=== PATIENT | female | born 1985 | race Caucasian/White ===

== ENCOUNTER → 2017-12-27 10:36 | Outpatient (CLI) | payer OTHER, SELFPAY ==
--- NOTE | 2017-12-27 10:39 | CT_ITS ---
STUDY: CT MAXILLOFACIAL SINUSES REASON FOR EXAM: Female, 32 years old. Chronic ethmoid sinusitis RADIATION DOSAGE (If Supplied By Facility): CTDIvol = ( 33.06 ) mGy, DLP = ( 767.73 ) mGycm TECHNIQUE: The patient was scanned in a multi detector CT scanner. High resolution axial imaging was performed without the administration of intravenous contrast material. Sagittal and coronal images were reconstructed. Individualized dose optimization techniques were used for this CT. COMPARISON: None. FINDINGS: Diffuse left ethmoid sinus disease. Diffuse left frontal sinus disease. Left maxillary sinusitis. There is widening and occlusion of the left primary ostium. Underlying left maxillary polyposis cannot be excluded. Mild mucosal thickening in the right maxillary sinus. Mild mucosal thickening in both sphenoid sinuses. Orbital soft tissues are intact. No fractures or destructive osseous lesions are visible. Visualized skull base is intact. Machine Washer spaces and parapharyngeal spaces are intact. Visualized parotid glands, nasopharynx, oral cavity, and oropharynx are intact. CT/Sinus/Facial Bone IMPRESSION: Diffuse left ethmoid and frontal sinus disease. Diffuse left maxillary sinus disease with associated widening of the primary ostium. Associated underlying polyposis cannot be excluded. Electronically Signed: Michael Manning MD at 23:47 EDT Tel , Service support ,
== END ==
PROVIDERS: Visit Provider Otolaryngology
DX: J32.2 Chronic ethmoidal sinusitis (principal)
CPT/HCPCS: 70486

== ENCOUNTER 2017-12-30 06:40 | Day surgery (SDC) | payer OTHER, SELFPAY ==
[2017-12-30] VITALS (8 sets, daily range): BP systolic 117–140; BP diastolic 69–90; PULSE 65–101; RESP 16–18; TEMP 36.1–36.5; O2SAT 95–97; BMI 39.6
[2017-12-30 07:12] LABS: Internal QC Validated? YES +Cl - CLEAR BKGD; Pregnancy, Urine Negative Negative
--- NOTE | 2017-12-30 08:35 | ETH_PTH ---
PATIENT: WILDER CORONADO LOC: [facility] [place] U#:[id number] AGE/SX: 32/F ROOM: RE12/30/[address]: Dr. Jose Mcdaniels MD : 1985 BED: DIS: 12/30/2017 SPEC #: [id number] RECD: 12/30/17 10:52 STATUS: CALIXTO ORLIN #: [id number] KIRILL: 12/30/17 08:[address]: Jose Mcdaniels DEPT: SURGICAL PATHOLOGY RECD BY: Fritz Garcia ENTERED: 12/30/17 12:07 SP TYPE: ETH TISS OTHR DR: No Primary Care Phys Tissues: A - Ethmoid sinus, NOS B - Ethmoid sinus, NOS C - NASAL POLYP D - Nasal septum, NOS Procedures: Decalcification bone/plaque Surgery Specimen Level III Surgery Specimen Level IV HEADER OPERATION: Septoplasty, endoscopy, bilateral nasal w/maxillary antrostomy PRE-OP DIAGNOSIS: Deviated nasal septum, nasal polyp, chronic ethmoidal sinusitis TISSUE SUBMITTED: A. Left contents of maxillary and ethmoid sinus, B. Right contents of maxillary and ethmoid sinus, C. Nasal polyp, D. nasal septum and cartilage MICROSCOPIC DIAGNOSIS A. Left maxillary and ethmoid sinus contents: Fragments of respiratory mucosa with moderate chronic inflammation and bone. B. Right maxillary and ethmoid sinus contents: Fragments of respiratory mucosa with chronic inflammation and bone. C. Nasal polyp, biopsy: Pieces of benign inflamed mucosal polyp with focal squamous metaplasia. D. Nasal septum and cartilage: Fragments of cartilage and bone, clinically deviated nasal septum. SJ:brayden 01/03/18 MICROSCOPIC DESCRIPTION Slides are reviewed. GROSS DESCRIPTION A - Received in fixative is one container labeled with the patient's name and designated left contents of maxillary sinus and ethmoid sinus. The specimen consists of multiple fragments of hemorrhagic soft tissue mixed with fragments of bone that in aggregate measure 3 x 2.5 x 0.3 cm. The entire specimen is submitted in one cassette after decalcification. B - Received in fixative is one container labeled with the patient's name and designated right contents of maxillary sinus and ethmoid sinus. The specimen consists of multiple fragments of hemorrhagic soft tissue mixed with fragments of bone that in aggregate measure 3 x 2.5 x 0.3 cm. The entire specimen is submitted in one cassette after decalcification. C - Received in fixative is one container labeled with the patient's name and designated nasal polyp. The specimen consists of a marlow-pink polyp measuring 1.2 x 0.5 x 0.4 cm and 2.5 x 1.5 x 0.5 cm. Both polyps are bisected. The entire specimen is submitted in two cassettes. D - Received in fixative is one container labeled with the patient's name and designated nasal septum and cartilage. The specimen consists of multiple fragments of cartilage and bone that in aggregate measure 3 x 3 x 0.3 cm. Box Fabricator tissue is submitted in one cassette after decalcification. / VICTORINA:brayden 12/30/17 TC:3 CPT: 34300 x3, 35438, 03559 x3
[2017-12-30] MEDS: Oxymetazoline 0.05% 1 SPRAY SPRAY.BTL 15 SPRAY (08:55)
[2017-12-30] MEDS: Lidocaine 4% 50 ML Bottle (08:55)
--- NOTE | 2017-12-30 10:11 | PCM.DC ---
You will use the following diet at home:: Regular Discharge Activity: Return to Normal Activity, May not drive while taking narcotic pain medications. Call your doctor if your incision/area has: Sudden Increased Bleeding, Swelling at the incision site Call your doctor if you observe: Fever of 101 or Higher, Uncontrolled pain Allergies/Adverse Reactions: Allergies morphine Allergy (Verified 07/12/14 10:36) Itching also nausea Medications to take at Discharge NK [NK] 12/29/17 Primary Care Physician: Care Physician,No Primary [Primary Care Provider] - Please Follow Up With: Jose Mcdaniels MD When: 5 days
--- NOTE | 2017-12-30 10:13 | PCM.OPRPT ---
Problem List (1) Deviated nasal septum Status: Chronic (2) Chronic sinusitis of both maxillary sinuses Status: Chronic (3) Chronic ethmoidal sinusitis Status: Chronic Report of Operation Date of Procedure: 12/30/17 Pre-Operative Diagnosis: Left nasal polyp, chronic maxillary and ethmoid sinusitis, deviated nasal septum Post-Operative Diagnosis: same Surgery/Procedure Performed:: Septoplasty, bilateral total endoscopic ethmoidectomy, right maxillary antrostomy, left maxillary antrostomy with tissue removal Description of Surgical Findings:: Mildred is a 32-year-old female presents for evaluation of left chronic nasal site obstruction with a polypoid mass filling the nasal cavity. Examination showed an extensive polypoid mass completely obstructing the left nasal cavity as well as septal deviation and purulent discharge from the sinuses bilaterally. CT scan confirmed bilateral chronic sinusitis with complete opacification and a polypoid mass predominantly on the right side and the patient was counseled regarding surgical treatment and was eager to proceed. The risks, alternatives, potential benefits, and complications were discussed at length and any questions answered to the patient and/or caregiver's satisfaction. Witnessed informed consent was obtained in the office, and the patient and/or caregiver was agreeable to proceed. Procedure went as follows: The patient was identified in the preoperative holding and brought to the operating room, was placed under general anesthesia and intubated. When appropriate anesthesia was obtained, the navigational head gear was placed and confirmed to be operational in accordance with the full stack engineer's directions. Pledgets soaked in a 50-50 mixture of oxymetazoline and 4% topical lidocaine were placed to decongest the nasal mucosa. These were then removed and beginning on the left side using a 0? endoscope the nasal cavity examined. The insertion of the middle turbinate and uncinate process was then injected with 1% lidocaine with 100,000 epinephrine for a 2 cc total, and a similar injection was then carried on the contralateral side. Upon returning to the left side the middle turbinate was medialized with a Wagoner elevator. There was a large polyp extending through a secondary ostium of the medial maxillary sinus wall. This was grasped at its base and evulsed. This allowed examination of the maxillary sinus ostia which is then probed with a double ball seeker. The uncinate process process was then outfractured with a J curette and transected with a backbiting forceps. This was then removed with the microdebrider creating a wide maxillary antrostomy. The ethmoid bulla was then entered and total ethmoidectomy was then carried out working posteriorly to anterior. Any polyps, scar, and mucous secretions were removed. Copious purulent material was irrigated from the frontal sinus and anterior ethmoidal cells. Pledgets soaked in oxymetazoline were then placed for hemostasis and attention turned to the contralateral side. Similar procedure and findings were then carried out, but without significant polypoid disease noted despite purulent secretions. Floseal hemostatic agent was then applied. The patient was identified in the preoperative holding and brought to the operating room, was placed under general anesthesia and intubated. When appropriate anesthesia was obtained, pledgets soaked in a 50-50 mixture of oxymetazoline and 4% topical lidocaine were placed to decongest the nasal mucosa. The nasal septum was then injected beginning on the left side with 1% lidocaine with 100,000 epinephrine for a total of 8 cc. The pledgets were then removed and the left nasal cavity examined. There was noted to be significant nasal septal deviation to the left posteriorly. Using a 15 blade scalpel, a hemitransfixion incision was then made in the left side and using the Joan elevator a subperichondrial/periosteal flap was elevated. The septum was then transected at the bony cartilaginous junction and similar flap raised on the contralateral side. Using a Leandro-Liberty forceps the septum was then sharply transected superiorly and the deviated portions removed with a Robert forceps. Any inferior bony spur was then removed with a chisel allowing for midline placement of the nasal septum. The hemitransfixion incision was then closed with interrupted 4-0 chromic gut suture followed by a 4-0 plain quilting suture to reapproximate the mucosal flaps. Forte splints coated with Bacitracin ointment were then applied to each nasal cavity and secured at the columella with a single 3-0 Prolene suture. An NG tube was then placed to decompress the stomach and the patient returned to anesthesia, revived and extubated having tolerated the procedure well. Type of Anesthesia:: General Anesthesiologist: Jose Boykin Special Medications: none Specimen's removed: septum and sinus contents Drains: none Estimated Blood Loss (mL): 200 mL Fluids Replaced: 1100 mL Grafts/Implants Used: Forte splints - Complications none - Admit VTE Documentation VTE Present on Admission: No VTE Mechan Device Prophylaxis: SCD's VTE Pharm Prophylaxis ordered?: No
== END 2017-12-30 13:18 | disposition home or self-care (01) ==
LOC: SDC 06:42 → AC 06:44
PROVIDERS: Visit Provider Otolaryngology
PROC: (CPT 31255; principal; 2017-12-30 08:05)
DX: J34.2 Deviated nasal septum (principal); J32.2 Chronic ethmoidal sinusitis; J33.9 Nasal polyp, unspecified; K21.9 Gastro-esophageal reflux disease without esophagitis; Z87.891 Personal history of nicotine dependence
CPT/HCPCS: 00160; 31255; 31267; 81025; 88304; 88305; 88311; J7120; J2405

== ENCOUNTER 2021-07-07 05:05 | Inpatient (IN) | payer OTHER, SELFPAY ==
--- NOTE | 2021-07-06 13:25 | PCM.HP.BLA ---
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 ? TRUCK DRIVER RUBBISH COLLECTOR Expand AllCollapse All Expand All by Default Pre-Op History and Physical ? HPI: The patient is a 36 year old female presenting for pre-operative visit. She is scheduled for and bilateral salpingectomy, for repeat elective cs and desires sterilization on 07/07/21. Procedure discussed along with risks, benefits and complications. Other alternatives discussed for management. Consent form signed? Yes. ? ? PAST MEDICAL HISTORY PAST MEDICAL HISTORY Diagnosis Date ? Anemia ? ? Anxiety ? ? anxiety ? ? Diabetes mellitus type 2, uncontrolled, without complications 12/12/2018 ? Diabetes, gestational ? ? Hyperlipidemia, acquired ? ? Hypothyroidism, acquired 12/12/2018 ? depression ? ? ? PAST SURGICAL HISTORY PAST SURGICAL HISTORY Procedure Laterality Date ? PAST SURGICAL HISTORY OF ? ? ? nasal polypectomy and part of nasal bone removed ? ? ? CURRENT MEDICATIONS Current Outpatient Medications Medication Sig Dispense Refill ? insulin NPH (HumuLIN N,NovoLIN N) pen Take 14 units with breakfast and 46 units at bedtime (SQ injection) as directed ? ? ? Insulin Warren, Disposable, (LITE TOUCH INSULIN PEN NEEDLES) 29 gauge x 1/2 Use as directed. 50 Each 2 ? insulin regular human, CONCENTRATED 500 UNIT/ML, (HUMULIN R) 500 unit/mL (3 mL) inpn Take 20 units with breakfast, 20 units with lunch, and 15 units with dinner as directed 3 mL 3 ? levothyroxine (SYNTHROID) 150 mcg tablet Take 1 tablet by mouth once daily. Take on empty stomach. For thyroid 30 tablet 11 ? Oadusoww-Xk-Kuh-Fe-FA ( VITAMIN) tab Take 1 tablet by mouth. ? ? ? Blood Pressure Test Kit-Large (QUICK RESPONSE BP MONITOR) 1 Each twice daily. Use as directed 1 Each 0 ? aspirin, enteric coated (ECOTRIN LOW STRENGTH) 81 mg EC tablet Take 1 tablet by mouth once daily. if no GI upset for stroke risk reduction. (Patient not taking: Reported on 06/30/2021 ) 90 tablet 3 ? blood sugar diagnostic (BLOOD GLUCOSE TEST) test strip Test blood sugar(s) 1-2 times daily. Dx: Type 1 DM - Uncontrolled E 10.65 Insulin: No 50 Strip 11 ? No current facility-administered medications for this visit. ? ? ALLERGIES: Codeine and Morphine ? PERSONAL HISTORY: SOCIAL HISTORY Social History ? Tobacco Use ? Smoking status: Former Smoker ? ? Packs/day: 1.00 ? ? Years: 10.00 ? ? Pack years: 10.00 ? ? Types: Cigarettes ? ? Quit date: 03/16/2010 ? ? Years since quittin.2 ? Smokeless tobacco: Never Used ? Tobacco comment: quit JUL 2009 Vaping Use ? Vaping Use: Never used Substance Use Topics ? Alcohol use: Not Currently ? ? Alcohol/week: 8.5 standard drinks ? ? Types: 3 Cans of Beer (12oz), 1 Standard drinks or equivalent per week ? Drug use: No ? FAMILY HISTORY: FAMILY HISTORY FAMILY HISTORY Problem Relation Age of Onset ? Heart Attack Mother ? ? Diabetes Mother ? ? Heart Attack Father ? ? Diabetes Father ? ? Hypertension Father ? ? No Known Problems Sister ? ? No Known Problems Sister ? ? No Known Problems Paternal Grandmother ? ? Heart Attack Paternal Grandfather ? ? No Known Problems Daughter ? ? ADD/ADHD Son ? ? No Known Problems Son ? ? ? REVIEW OF SYMPTOMS: negative except as noted above PHYSICAL EXAMINATION: ? VITALS: Blood pressure 126/70, weight 293 lb (132.9 kg), last menstrual period 10/08/2020. ? GENERAL: The patient is well nourished, well hydrated in no acute distress. , The patient is oriented to time, place, and person. NECK: full range of motion ABD: soft, gravid, non tender ? IMPRESSION: @ 37.6 weeks today- EDC 07/15/21 with Preexisting Type 2 DM on insulin, AMA, Hypothyroidism ? PLAN: Repeat elective CS and Bilateral salpingectomy ? Pt has been counseled on risks/benefits and alternatives of surgery including but not limited to anesthesia, bleeding, infection, injury to pelvic structures including bowel, bladder, ureters and vessels. Pt wishes to proceed with surgery at this time. We reviewed salpingectomy is permanent. Pt wishes to proceed. ? VERONA BEACHS protocol reviewed COVID testing ordered ? ? I have reviewed and updated past medical and surgical history, medications and allergies Carmella Bess MD
[2021-07-07] VITALS (19 sets, daily range): BP systolic 114–143; BP diastolic 64–84; PULSE 62–91; RESP 16–18; TEMP 36.1–36.7; O2SAT 95–100; BMI 43.0
[2021-07-07] MEDS: Lactated Ringers 1,000 ML 999 ML IV (05:30)
[2021-07-07] MEDS: Acetaminophen 500 MG Tablet 1000 MG PO ×3 (05:55→17:44)
[2021-07-07 05:56] LABS: Bedside Glucose 101 mg/dL (70-110)
[2021-07-07 06:31] LABS: Absolute Lymphocyte Count 3.25 X10^3/uL (0.83-4.51); Absolute Neutrophil Count 6.4 X10^3/uL (2.0-7.7); Basophil# 0.06 X10^3/uL; Basophil% 0.6 % (0-1); Eosinophil# 0.12 X10^3/uL; Eosinophils% 1.1 % (0-5); Hematocrit 36.3 % (37-47); Hemoglobin 11.8 g/dL (12.0-15.0); Lymphocyte # 3.25 X10^3/ul (0.83-4.51); Lymphocyte % 30.2 % (19-41); Mean Corp Hgb Conc 32.5 g/dL (32-36); Mean Corpuscular Hgb 30.3 pg (27.0-32.0); Mean Corpuscular Volume 93.3 fL (81-99); Mean Platelet Vol. 11.4 fl (6.2-12.0); Monocyte% 8.4 % (0-10); NRBC Flagged by Analyzer 0 % (0-5); Neutrophil # 6.38 X10^3/uL (2.7-7.7); Neutrophil % 59.3 % (47-70); Platelet Count 215 K/mm3 (150-450); RBC Distribution Width CV 13.3 % (11.6-14.6); RBC Distribution Width SD 45.1 fl (35.1-43.9); Red Blood Count 3.89 M/mm3 (4.2-5.4); White Blood Count 10.8 K/mm3 (4.4-11.0)
[2021-07-07] MEDS: Lactated Ringers 1,000 ML 150 ML IV (06:31)
[2021-07-07] MEDS: Sodium Citrate/Citric Acid 30 ML UDC PO (07:11)
--- NOTE | 2021-07-07 08:02 | FALS_PTH ---
PATIENT: WILDER CORONADO LOC: [facility] U#:[id number] AGE/SX: 36/F ROOM: WP007 RE07/07/[address]: Dr. Carmella Mendoza, MDDOB: 1985 BED: 1 DIS: 07/09/2021 SPEC #: [id number] RECD: 07/07/21 09:06 STATUS: CALIXTO ORLIN #: [id number] KIRILL: 07/07/21 08:[address]: Carmella Mendoza DEPT: SURGICAL PATHOLOGY RECD BY: Sandie Kwon ENTERED: 07/07/21 12:05 SP TYPE: FALL TUBES OT DR: No Primary Care Phys Tissues: A - Fallopian tube B - Placenta, NOS Procedures: Surgery Specimen Level II Surgery Specimen Level V HEADER OPERATION: Repeat section, tubal ligation PRE-OP DIAGNOSIS: Two-vessel cord, diabetic TISSUE SUBMITTED: A ? Bilateral fallopian tubes, B - Placenta MICROSCOPIC DIAGNOSIS A. Bilateral fallopian tubes, bilateral salpingectomies: Right fallopian tube ? complete segment of fallopian tube. Benign paratubal cyst. Left fallopian tube ? complete segment of fallopian tube. Benign paratubal cyst. B. Gerber placenta (292 gm): Umbilical cord ? bivascular with no evidence of inflammation. Placental membranes ? no pathologic change. Placental disc ? mild Taina-Chau change, intervillous congestion and focal nonspecific chronic villitis. AM:brayden 07/09/2021 MICROSCOPIC DESCRIPTION Slides are reviewed. GROSS DESCRIPTION A - Received in fixative is one container labeled with the patient's name and designated bilateral fallopian tubes, suture in right tube. The specimen consists of two fallopian tubes with an average length of 9 cm and has an average diameter of 0.6 cm. Both fallopian tubes have normal fimbriated ends. No mass lesions are identified. The soft tissue adjacent to the right fallopian tube contains a small cyst containing clear fluid. The cyst measures 0.8 cm in greatest dimension. Usps Letter Carrier sections are submitted in two cassettes as follows: 1 - right fallopian tube, 2 - left fallopian tube. B - SPECIMEN: PLACENTA / CLINICAL INFORMATION: A. Weight: 2.3 kg B. Gestational Age: 38 weeks C. Sex: Female PLACENTAL WEIGHT (POST FIXATION): 292 gm PLACENTAL DIMENSIONS: 17 x 15 x 3 cm PLACENTAL SHAPE: Usual ovoid PLACENTAL WEIGHT FOR GESTATIONAL AGE: Under 10th percentile MEMBRANES - Present A. Insertion: Marginal B. Site of rupture from edge: 3 cm from edge of placental disc C. Color of membrane: Stafford-patel D. Abnormalities: None UMBILICAL CORD - Present A. Color: Stafford-patel B. Insertion: Eccentric C. Length: 36 cm D. Diameter: 1 cm E. Number of vessels: Two F. Abnormalities: None PLACENTAL DISC - Present A. Color of surface: Stafford-patel B. surface abnormalities: None C. Maternal cotyledons: Intact with minimal tears D. Attached retro placental clot: No clot E. Cut surface: Dark red and spongy F. Lesions: None G. Separate clot: Absent SECTIONS SUBMITTED: 1. Umbilical cord ( end notched) 2. Umbilical cord, placental end 3. Membrane roll 4. Placental disc, and maternal surfaces 5. Placental disc, and maternal surfaces 6. Placental disc, and maternal surfaces AM:brayden 07/08/21 TC:3 CPT: 36951, 19626 x2
--- NOTE | 2021-07-07 08:35 | OP.PCM_ITS ---
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 sHe was placed in the supine position. She was then prepped and draped in normal sterile fashion. Once spinal anesthesia was found to be adequate skin incision was made with a scalpel in a Pfannenstiel fashion. It was carried down to the underlying layer of the fascia. Fascia was then incised midline with scapel and extended laterally using curved mccallum. 2 straight Bush's were placed in the superior aspect of the fascial edge and the rectus muscles were dissected off sharply. Attention was then turned to the inferior aspect where again the fascial edge was grasped with 2 straight Sherry clamps tented up and the rectus muscle dissected off sharply. At this time the rectus muscles were grasped in the midline using 2 Allis clamps and scalpel was used to separate the rectus muscles. Using blunt force the peritoneum was then entered. Metzenbaums were used to take down the rectus muscles inferiorly as well as the peritoneum. At this time the vesicouterine peritoneum was identified. Uterine incision was made in a low transverse fashion with the scalpel and then entered bluntly. Gentle opposing traction was placed to extend the uterine incision. The membranes were ruptured amniotic fluid clear. Infant's head was then brought to the uterine incision was delivered atraumatically followed by the rest infant's body. At this time delayed cord clamping was performed mouth nose were suctioned. Infant was then handed to the waiting nursery team. The placenta was then removed with gentle traction. The uterus was removed from the intra- abdominal cavity is wrapped in a moist lap. He was cleared of all clots and debris using a moist lap. Ring clamps were placed on the uterine angles. #1 Vicryl suture was used in a running locked fashion for the first layer. Followed by second imbricating layer with #1 Vicryl. Tubes and ovaries were evaluated they were normal. The tubes were grasped in an avascular area with the [place] the tube was sealed and cut along mesosalpinx to remove tube completely. Uterus placed back in intraabdominal cavity- the procedure was completed on the other other side. Josué placed over pedicles and uterine incision. Great hemostasis was appreciated at this time the uterine incision was again evaluated good hemostasis was appreciated. The peritoneum was grasped with Kellys. Peritoneum and muscle were reapproximated using #2 Vicryl suture in a running fashion. Josué placed over muscle. The fascia was then reapproximated using #1 PDS in a running fashion. Subcutaneous layer was evaluated and Bovie was used for any small oozing that was noted per #2-0 plain gut suture was then used to reapproximate the subcutaneous layer 4-0 monocryl was used to reapproximate the skin in a subcutaneous fashion. Dry sterile dressing was applied. Instrument lap needle count were correct ?2. Anticipated normal postoperative course for this patient. Presentation: Positive for Vertex Amniotic Membrane Rupture Type: Artificial Amniotic Fluid Description: Clear Placental Delivery Description: Expressed Placenta Disposition: [facility] Cord Vessel Description: 3 Vessels Cord Entanglement: Around neck x 2, loose Nuchal Cord Compression: Without compression A Gender: Female (1 minute): 9 (5 minute): 9 Delayed Cord Clamping: Yes Complications Risks of Surgery Discussed w/Patient: Bleeding, Anesthesia Risks, Infection, Permanency, Injury to surrounding structure(s) including bowel and bladder and Availability of other non-permanent control options Admit VTE Documentation VTE Present on Admission: Yes VTE Mechan Device Prophylaxis: SCD's VTE Pharm Prophylaxis Ordered: Yes
[2021-07-07] MEDS: Oxytocin 30 units/NS 500 ml 30 UNITS/500 ML IV.SOLN 167 UNITS IV (08:55)
[2021-07-07 09:10] LABS: Pathology Specimen OB SEE PATHOLOGY REPORT
[2021-07-07] MEDS: Ketorolac 30 MG/ML Syringe IV ×3 (09:12→21:09)
[2021-07-07] MEDS: 0.9% Saline Lock 10 ML Syringe IV ×2 (09:12→21:09)
[2021-07-07 09:20] LABS: Bedside Glucose 105 mg/dL (70-110)
--- NOTE | 2021-07-07 10:02 | NURSING ---
ligasure was used, machine #1. Ligasure device lot #[id number]. expiration 04/08/2026
[2021-07-07] MEDS: Lactated Ringers 1,000 ML 100 ML IV (12:52)
[2021-07-07] MEDS: Insulin U-500 UNITS/ML PEN 10 UNITS SC (12:54)
[2021-07-07] MEDS: Senna/Docusate Sodium 1 Tablet PO (13:00)
[2021-07-07 17:16] LABS: Bedside Glucose 65 mg/dL (70-110)
--- NOTE | 2021-07-07 18:16 | NURSING ---
Called Dr. Bess to update on patient's blood sugar and insulin. Informed her that her BGT was 105 during her recovery, that she received her insulin at lunch time and that her BGT was 68 prior to her dinner and that she was feeling very tired. Dr. Bess ordered to hold the regular insulin for dinner but to still give the NPH tonight.
--- NOTE | 2021-07-07 19:23 | NURSING ---
Pulse ox placed on patient's right hand, ring finger while patient is in SCN visiting baby. Spo2 98% and patient denies SOB, pain, or difficulty breathing.
[2021-07-07] MEDS: Enoxaparin 40 MG/0.4 ML Syringe SC (21:09)
[2021-07-07] MEDS: Insulin NPH Human 100 UNITS/ML PEN 23 UNITS SC (21:19)
[2021-07-07 21:31] LABS: Bedside Glucose 159 mg/dL (70-110)
[2021-07-08] VITALS (10 sets, daily range): BP systolic 126–156; BP diastolic 54–79; PULSE 65–83; RESP 16–18; TEMP 36.3–36.8; O2SAT 64–99
[2021-07-08] MEDS: Acetaminophen 500 MG Tablet 1000 MG PO ×5 (00:08→23:59)
[2021-07-08] MEDS: 0.9% Saline Lock 10 ML Syringe IV (03:43)
[2021-07-08] MEDS: Ketorolac 30 MG/ML Syringe IV (03:43)
[2021-07-08 06:01] LABS: Hematocrit 32.1 % (37-47); Hemoglobin 10.4 g/dL (12.0-15.0); Mean Corp Hgb Conc 32.4 g/dL (32-36); Mean Corpuscular Hgb 30.5 pg (27.0-32.0); Mean Corpuscular Volume 94.1 fL (81-99); Mean Platelet Vol. 10.8 fl (6.2-12.0); Platelet Count 159 K/mm3 (150-450); RBC Distribution Width CV 13.5 % (11.6-14.6); Red Blood Count 3.41 M/mm3 (4.2-5.4); White Blood Count 10.3 K/mm3 (4.4-11.0)
[2021-07-08] MEDS: Levothyroxine 150 MCG Tablet PO (07:00)
--- NOTE | 2021-07-08 08:45 | PN.OBGYN_ITS ---
Subjective Subjective Pain well controlled. Average lochia. Ambulating without difficulty. Able to urinate without difficulty and tolerating regular diet. Objective Data Objective Data Vital Signs: Vital Signs Temp Pulse Resp BP Pulse Ox 97.4 F L 72 18 136/71 H 97 07/08/21 05:42 07/08/21 05:42 07/08/21 08:00 07/08/21 03:42 07/08/21 08:00 Oxygen Delivery Method Room Air Weight: 132.086 kg Body Mass Index (BMI) 43.0 Intake & Output: Intake and Output for Last 24 Hours 07/06/21 07/07/21 07/08/21 23:59 23:59 23:59 Intake Total 2525.83 / 2525.83 Output Total 550 / 550 Balance 1974.83 / 1974.83 Lab / Micro Data Result Diagrams: 07/08/21 05:50 Labs: Laboratory Results - last 24 hr 07/07/21 09:12: POC Glucose 105 07/07/21 10:10: Screen NEGATIVE, Baby's Blood Type A POSITIVE, Baby's NATO NEGATIVE 07/07/21 17:03: POC Glucose 65 L 07/07/21 21:16: POC Glucose 159 H 07/08/21 05:50: WBC 10.3, RBC 3.41 L, Hgb 10.4 L, Hct 32.1 L, MCV 94.1, MCH 30. 5, MCHC 32.4, RDW Std Deviation 46.0 H, RDW Coeff of Aramis 13.5, Plt Count 159, MPV 10.8 Micro: Microbiology 07/07/21 06:10 Nasal Secretion SARS-CoV-2 Antigen (Rapid) - Final Physical Exam Const alert General Appearance: cooperative GI GI Narrative: soft, moderate distention, fundus firm, appropriately tender. Abdominal bandage clean dry and intact Assessment & Plan (1) delivery delivered: PLAN: Postoperative day #1 status post repeat section. Patient is doing well. Routine care today. is in special care nursery and doing well. Patient is working on breast-feeding. Postop mild blood loss anemia is appropriate for blood loss during surgery.
[2021-07-08] MEDS: Insulin NPH Human 100 UNITS/ML PEN 7 UNITS SC (09:17)
[2021-07-08] MEDS: Insulin U-500 UNITS/ML PEN 10 UNITS SC ×2 (09:20→12:55)
[2021-07-08] MEDS: Ibuprofen 600 MG Tablet PO ×3 (09:21→20:57)
[2021-07-08] MEDS: Senna/Docusate Sodium 1 Tablet PO (09:21)
[2021-07-08] MEDS: Enoxaparin 40 MG/0.4 ML Syringe SC ×2 (09:21→22:10)
[2021-07-08 09:30] LABS: Bedside Glucose 72 mg/dL (70-110)
[2021-07-08 13:01] LABS: Bedside Glucose 95 mg/dL (70-110)
[2021-07-08] MEDS: Insulin U-500 UNITS/ML PEN 7 UNITS SC (17:13)
[2021-07-08 17:20] LABS: Bedside Glucose 98 mg/dL (70-110)
[2021-07-08] MEDS: Insulin NPH Human 100 UNITS/ML PEN 23 UNITS SC (22:11)
[2021-07-08 22:21] LABS: Bedside Glucose 127 mg/dL (70-110)
[2021-07-09 04:10] VITALS: BP 114/65; PULSE 71; RESP 18
[2021-07-09] MEDS: Ibuprofen 600 MG Tablet PO ×2 (04:12→09:41)
[2021-07-09] MEDS: Acetaminophen 500 MG Tablet 1000 MG PO ×2 (06:23→12:32)
[2021-07-09] MEDS: Levothyroxine 150 MCG Tablet PO (06:23)
[2021-07-09] MEDS: Insulin NPH Human 100 UNITS/ML PEN 7 UNITS SC (08:11)
[2021-07-09 08:20] VITALS: BP 143/85; PULSE 75; RESP 16; TEMP 36.4
[2021-07-09 08:21] LABS: Bedside Glucose 78 mg/dL (70-110)
[2021-07-09] MEDS: Insulin U-500 UNITS/ML PEN 10 UNITS SC ×2 (08:53→13:13)
--- NOTE | 2021-07-09 09:06 | PCM.PN.OB ---
Subjective Subjective Pain well controlled. Average lochia. No nausea or vomiting. Passing flatus, no bowel movement yet. Ambulating without difficulty. Objective Data Objective Data Vital Signs: Vital Signs Temp Pulse Resp BP Pulse Ox 97.6 F L 75 16 143/85 H 98 07/09/21 08:20 07/09/21 08:20 07/09/21 08:20 07/09/21 08:20 07/08/21 19:44 Oxygen Delivery Method Room Air Weight: 132.086 kg Body Mass Index (BMI) 43.0 Intake & Output: Intake and Output for Last 24 Hours 07/07/21 07/08/21 07/09/21 23:59 23:59 23:59 Intake Total 2525.83 / 2525.83 Output Total 550 / 550 Balance 1974.83 / 1974. Lab / Micro Data Result Diagrams: 07/08/21 05:50 Labs: Laboratory Results - last 24 hr 07/08/21 09:16: POC Glucose 72 07/08/21 12:54: POC Glucose 95 07/08/21 17:12: POC Glucose 98 07/08/21 22:10: POC Glucose 127 H 07/09/21 08:10: POC Glucose 78 Micro: Microbiology 07/07/21 06:10 Nasal Secretion SARS-CoV-2 Antigen (Rapid) - Final Physical Exam Const alert General Appearance: cooperative GI GI Narrative: soft, moderate distention, remainder of abdominal exam deferred as was breast-feeding. Per nursing bandages clean dry and intact. Fundus is appropriately firm. Assessment & Plan (1) delivery delivered: PLAN: Postoperative day #2 status post repeat section. Blood sugars are stable. Blood pressures were elevated last night. Has a mild headache of 2 out of 10 today. Will monitor blood pressures and headache for now. is still in special care nursery for hypoglycemia. Working on breast-feeding. Patient will likely be discharged tomorrow. Patient states understanding and agreement with plan.
[2021-07-09] MEDS: Senna/Docusate Sodium 1 Tablet PO (09:42)
[2021-07-09] MEDS: Enoxaparin 40 MG/0.4 ML Syringe SC (09:42)
--- NOTE | 2021-07-09 12:49 | PCM.DC ---
Discharge Instructions Diet Discharge Diet: No restrictions Activity May resume sexual activity in: 6-8 weeks Lifting Restrictions: 25 Dressing / Incision Call your doctor if your incision/area has: Continuous Slow Oozing, Sudden Increased Bleeding, Increased Pain/ Swelling, Increased Redness, Foul Smelling Discharge and Swelling at the incision site Call your doctor if you observe: Fever of 101 or Higher, Inability to urinate, Using more than 1 pad per hour and Uncontrolled pain Additional Dressing/Incision Instructions:: remove dressing at 7 days post op- if it becomes saturated prior to that time you may remove it. Let soap and water run over incision sites and dab dry. keep incision clean and dry. Follow Up Care Please Follow Up With: Carmella Mendoza MD When: 1-2 weeks post of incision check and again at 6 weeks post . [phone] Test Results: Test results from this visit will be discussed in further detail at your follow-up appointment, if applicable. Discharge Plan Admission Admit Date/Time: 07/07/21 05:05 Attending Provider: Carmella Mendoza Primary Care Provider: Care Physician,No Primary Discharge Orders/Prescriptions Prescriptions: New acetaminophen 500 mg Tablet 1,000 mg PO Q6 Qty: 0 RF: 0 Humulin N NPH Insulin KwikPen 100 unit/mL (3 mL) Insulin Pen 7 unit subcut BREAKFAST Qty: 0 RF: 0 Humulin N NPH Insulin KwikPen 100 unit/mL (3 mL) Insulin Pen 23 unit subcut QHS Qty: 0 RF: 0 sennosides-docusate sodium [Stool Softener-Stimulant Laxat] 8.6-50 mg Tablet 1 - 2 tab PO DAILY Qty: 0 RF: 0 ibuprofen 600 mg Tablet 600 mg PO Q6H Qty: 0 RF: 0 simethicone [Mi-Acid Gas Relief(simethicon)] 80 mg Tablet,Chewable 80 mg PO PCHS PRN (Reason: Indigestion/stomach pain) Qty: 0 RF: 0 Continued levothyroxine 150 mcg Tablet 150 mcg PO DAILY RF: 0 Humulin N NPH Insulin KwikPen 100 unit/mL (3 mL) Insulin Pen 14 unit SUBCUT BREAKFAST RF: 0 Humulin N NPH Insulin KwikPen 100 unit/mL (3 mL) Insulin Pen 46 unit SUBCUT QHS RF: 0 Humulin R U-500 (Conc) Kwikpen 500 unit/mL (3 mL) Insulin Pen 20 unit SUBCUT BREAKFAST RF: 0 Humulin R U-500 (Conc) Kwikpen 500 unit/mL (3 mL) Insulin Pen 20 unit SUBCUT LUNCH RF: 0 Humulin R U-500 (Conc) Kwikpen 500 unit/mL (3 mL) Insulin Pen 15 unit SUBCUT DINNER RF: 0 No Action aspirin 81 mg Capsule 81 mg PO DAILY RF: 0 Referrals / Follow Up: Care Physician,No Primary [Primary Care Provider] -
--- NOTE | 2021-07-09 12:54 | DS.PCM_ITS ---
Discharge Summary Date of Admission: 07/07/21 Date of Discharge: 07/09/21 Summary: Patient was admitted to [facility] on 06/29/2001 underwent a repeat low transverse section with a bilateral salpingectomy at 38.6 weeks gestation. Patient an uncomplicated postoperative course was discharged home on postoperative day #2 in stable condition. Patient will and will follow up with primary care physician for adjustment follow up in the office for routine care and further adjustment of insulin. Meaningful Use Info Meaningful Use Diagnoses (Choose all that apply): None applicable Discharge Plan Admission Admit Date/Time: 07/07/21 05:05 Attending Provider: Carmella Mendoza Primary Care Provider: Care Physician,Susy Primary Discharge Orders/Prescriptions Prescriptions: New acetaminophen 500 mg Tablet 1,000 mg PO Q6 Qty: 0 RF: 0 Humulin N NPH Insulin KwikPen 100 unit/mL (3 mL) Insulin Pen 7 unit subcut BREAKFAST Qty: 0 RF: 0 Humulin N NPH Insulin KwikPen 100 unit/mL (3 mL) Insulin Pen 23 unit subcut QHS Qty: 0 RF: 0 sennosides-docusate sodium [Stool Softener-Stimulant Laxat] 8.6-50 mg Tablet 1 - 2 tab PO DAILY Qty: 0 RF: 0 ibuprofen 600 mg Tablet 600 mg PO Q6H Qty: 0 RF: 0 simethicone [Mi-Acid Gas Relief(simethicon)] 80 mg Tablet,Chewable 80 mg PO PCHS PRN (Reason: Indigestion/stomach pain) Qty: 0 RF: 0 Continued levothyroxine 150 mcg Tablet 150 mcg PO DAILY RF: 0 Humulin N NPH Insulin KwikPen 100 unit/mL (3 mL) Insulin Pen 14 unit SUBCUT BREAKFAST RF: 0 Humulin N NPH Insulin KwikPen 100 unit/mL (3 mL) Insulin Pen 46 unit SUBCUT QHS RF: 0 Humulin R U-500 (Conc) Kwikpen 500 unit/mL (3 mL) Insulin Pen 20 unit SUBCUT BREAKFAST RF: 0 Humulin R U-500 (Conc) Kwikpen 500 unit/mL (3 mL) Insulin Pen 20 unit SUBCUT LUNCH RF: 0 Humulin R U-500 (Conc) Kwikpen 500 unit/mL (3 mL) Insulin Pen 15 unit SUBCUT DINNER RF: 0 No Action aspirin 81 mg Capsule 81 mg PO DAILY RF: 0 Referrals / Follow Up: Care Physician,No Primary [Primary Care Provider] - Disposition Discharge Orders: Discharge Patient (Routine); Ordered 07/09/21 Ordered By: Dr. Carmella Mendoza
--- NOTE | 2021-07-09 13:01 | NURSING ---
mother is in SCN with baby, education given, watching CPR
[2021-07-09 13:21] LABS: Bedside Glucose 72 mg/dL (70-110)
[2021-07-09 14:43] VITALS: BP 142/85; PULSE 78; RESP 16; TEMP 36.4
== END 2021-07-09 15:10 | disposition home or self-care (01) | DRG 785 ==
PROVIDERS: Admitting Provider Obstetrics & Gynecology; Visit Provider Obstetrics & Gynecology
PROC: 10D00Z1 Extraction of Products of Conception, Low, Open Approach (ICD-10-PCS; CPT 59514; principal; 2021-07-07 07:15)
DX: O24.424 Gestational diabetes mellitus in childbirth, insulin controlled (principal); O34.211 Maternal care for low transverse scar from previous cesarean delivery; O99.214 Obesity complicating childbirth; O99.284 Endocrine, nutritional and metabolic diseases complicating childbirth; E78.5 Hyperlipidemia, unspecified; E03.9 Hypothyroidism, unspecified; O69.1XX0 Labor and delivery complicated by cord around neck, with compression, not applicable or unspecified; Z30.2 Encounter for sterilization; Z37.0 Single live birth; Z79.890 Hormone replacement therapy; Z82.49 Family history of ischemic heart disease and other diseases of the circulatory system; Z83.3 Family history of diabetes mellitus; Z87.891 Personal history of nicotine dependence; Z3A.38 38 weeks gestation of pregnancy; O99.02 Anemia complicating childbirth; D64.9 Anemia, unspecified; O65.5 Obstructed labor due to abnormality of maternal pelvic organs; E66.9 Obesity, unspecified
CPT/HCPCS: 82962; 85025; 85027; 85461; 86850; 86900; 86901; 87426; 88302; 88307; 90384; 99218; J7120; A4216; G0378; J2405; J2790